=== PATIENT | male | born 1965 | race Caucasian/White ===

== ENCOUNTER 2019-05-15 05:30 | Emergency (ER) | payer OTHER ==
[~2019-05-15] VITALS: Ht 195.6 cm; Wt 127.0 kg
[2019-05-15] MEDS ORDERED: FLOMAX0.4 MG PO (05:37)
[2019-05-15] MEDS ORDERED: CIPROFLOXACIN500 M1 PO (09:19)
[2019-05-15] MEDS ORDERED: PERCOCET 5-3251 EACH PO (09:19)
[2019-05-15 09:22] LABS: URINE BILIRUBIN NEGATIVE (Negative); URINE BLOOD 3+ (Negative); URINE CLARITY CLEAR; URINE COLOR YELLOW; URINE GLUCOSE-RANDOM NEGATIVE (Negative); URINE KETONES NEGATIVE (Negative); URINE LEUKOCYTES-REFLEX NEGATIVE (Negative); URINE NITRITE-REFLEX NEGATIVE (Negative); URINE PROTEIN NEGATIVE (Negative); URINE UROBILINOGEN 0.2 E.U./dl (0.2-1.0)
[2019-05-15 09:23] VITALS: BP 151/97
[2019-05-15 09:39] LABS: SQUAMOUS 0-3 Few /LPF (0-3)
[2019-05-15 09:40] LABS: BACTERIA-REFLEX 1-9 Few /HPF (None Seen); CASTS None Seen /LPF (None Seen); CRYSTALS None Seen /LPF (None Seen); MUCUS 0-3 Light strn/LPF (None Seen); URINE WBC-REFLEX 0-5 Rare /HPF (0-5)
== END 2019-05-15 09:24 | disposition home or self-care (01) ==
LOC: M.ERS 05:30
PROVIDERS: Emergency Medicine
DX: R33.9 Retention of urine, unspecified (principal); F32.9 Major depressive disorder, single episode, unspecified; F41.0 Panic disorder [episodic paroxysmal anxiety]; Z88.8 Allergy status to other drugs, medicaments and biological substances

== ENCOUNTER 2020-11-10 17:24 | Emergency (ER) | payer OTHER ==
[~2020-11-10] VITALS: Ht 193 cm; Wt 140.6 kg
[~2020-11-10 17:24] MED LIST: CIPROFLOXACIN500 M1 PO; FLOMAX0.4 MG PO; PERCOCET 5-3251 EACH PO
[2020-11-10] MEDS ORDERED: PAXIL20 MG PO (17:32)
[2020-11-10] MEDS ORDERED: REQUIP 1 MG TABL1 M1 PO (17:33)
[2020-11-10] MEDS ORDERED: PROPANALOL (17:33)
[2020-11-10 18:02] LABS: ABSOLUTE BASOPHILS 0.1 thou/uL (0.0-0.2); ABSOLUTE EOSINOPHILS 0.1 thou/uL (0.0-0.7); ABSOLUTE LYMPHOCYTES 2.3 thou/uL (0.8-5.3); ABSOLUTE MONOCYTES 0.4 thou/uL (0.0-1.2); ABSOLUTE NEUTROPHILS 4.1 thou/uL (1.6-8.1); BASOPHILS 1.1 %; EOSINOPHILS 1.5 %; HEMATOCRIT 43.6 % (42.0-52.0); LYMPHOCYTES 32.3 %; MCH 30.2 pg (26.0-34.0); MCHC 34.4 g/dL (28.0-37.0); MCV 87.8 fL (80.0-100.0); MONOCYTES 6.4 %; MPV 8.2 fl. (7.2-11.1); NUCLEATED RBCS 0 /100WBC; PLATELET COUNT* 162 thou/uL (150-400); POLYS 58.7 %; RBC 4.97 mil/uL (4.50-6.00); RDW-CV 13.8 % (10.5-14.5)
[2020-11-10 18:21] LABS: APTT 26.4 Seconds (25.0-31.3); PROTIME 10.3 Seconds (9.20-11.50)
[2020-11-10 18:24] LABS: CALCIUM 9.8 mg/dL (8.5-10.1); CREATININE 1.1 mg/dL (0.6-1.3); POTASSIUM 4.3 mmol/L (3.5-5.1)
[2020-11-10 18:38] LABS: ALBUMIN 3.7 g/dL (3.4-5.0); CK-MB MASS 3.1 ng/mL (<0.5-3.6); MAGNESIUM 2.2 mg/dL (1.8-2.4); TOTAL BILIRUBIN 0.9 mg/dL (<0.1-1.0); TOTAL PROTEIN 7.1 g/dL (6.4-8.2)
[2020-11-10 20:31] VITALS: BP 154/61
--- NOTE | 2020-11-11 10:07 | EKG ---
[place] [address] ELECTROCARDIOGRAM REPORT Name: PURA MACHUCA Room: [facility]#: [id number] Admission: 11/10/20 Attend Phys: Discharge: 11/10/20 Date of : 63 Date of Service: 11/10/20 1728 Report #: [id number] THIS REPORT FOR: //name// [facility] ED Test Date: 2020-11-10 Test Time: 17:28:02 Pat Name: PURA MACHUCA Department: Room: Gender: [employer]: [place] : 1965 Requested By: Shakeel Sigala Order Number: [id number] MD: Zheng Gallardo Measurements Intervals [place] Rate: 57 P: -7 NV: 160 QRS: -2 QRSD: 107 T: 32 QT: 417 QTc: 406 Interpretive Statements Sinus rhythm Minor IVCD of the right eye Abnormal R-wave progression, early transition No previous ECG available for comparison Electronically Signed On 11-11-2020 10:07:32 [employer]IVER SERVICE TECHNICIAN by Zheng Gallardo [email or web address] <ELECTRONICALLY SIGNED> By: Zheng Gallardo MD, [facility] 11/11/20 1007 1728 27 Zheng Gallardo MD, FAC /EPI
== END 2020-11-10 20:32 | disposition home or self-care (01) ==
LOC: M.ERS 17:24
PROVIDERS: Family Medicine
DX: R07.89 Other chest pain (principal); Z20.828 Contact with and (suspected) exposure to other viral communicable diseases; Z88.8 Allergy status to other drugs, medicaments and biological substances